=== PATIENT | female | born 1995 | race Caucasian/White ===

== ENCOUNTER 2016-10-05 18:27 | Emergency (ER) | payer OTHER ==
[~2016-10-05] VITALS: Ht 162.6 cm; Wt 72.7 kg
[2016-10-05 18:40] VITALS: BP 128/92; PULSE 72; RESP 16; O2SAT 99
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
[2016-10-05] MEDS ORDERED: Ondansetron 2 mg/mL 2 mL Inj IVPUSH ONE (19:15)
[2016-10-05 19:40] LABS: BASOPHILS % (AUTO) 0.3 % (0-3); EOSINOPHILS % (AUTO) 0.8 % (0-5); MONOCYTES % (AUTO) 5.9 % (4-12); Mean Corpuscular Hemoglobin 31.1 pg (27.0-35.0); Mean Corpuscular Volume 89.5 fL (81-100); NEUTROPHILS % (AUTO) 63.3 % (40-74); Platelet Count 273 bil/L (150-400)
[2016-10-05 19:53] LABS: INR 1.03 ratio
--- NOTE | 2016-10-05 19:53 | DRSVH ---
PROCEDURE: CT BRAIN WITHOUT CONTRAST ([id number]) INDICATIONS: trauma TECHNIQUE: Noncontrast 4.5 mm thick angled axial sections acquired from the foramen magnum to the vertex, with c oronal reformats. COMPARISON: None. FINDINGS: Image quality: Excellent. CSF spaces: Basal cisterns are patent. No extra-axial fluid collections. Ventricles are normal in size and shape. Brain: No midline shift. No intracranial masses or hemorrhage. Sigala-white matter interface is norm al. Skull and face: Calvarium and visualized facial bones are intact, without suspicious lesions. Sinuses: Visualized sinuses and mastoids are clear. IMPRESSION: No acute intracranial process Dictated by: Aram Jackson M.D. on 10/05/2016 at 19:48 Approved by: Aram Jackson M.D. on 10/05/2016 at 19:51
--- NOTE | 2016-10-05 19:55 | DRSVH ---
PROCEDURE: CT CERVICAL SPINE WITHOUT CONTRAST ([id number]) INDICATIONS: trauma TECHNIQUE: Noncontrast 3 mm thick sections acquired from the skull base to the T4 level. Sagittal and coronal r eformats were then constructed. For radiation dose reduction, the following was used: automated exp osure control, adjustment of mA and/or kV according to patient size. COMPARISON: None. FINDINGS: Image quality: Excellent. Bones: No fractures or dislocations. Visualized superior ribs are intact. Straightening of the nor mal cervical lordosis. The disc spaces appear preserved Soft tissues: Prevertebral soft tissues are normal in thickness. No paravertebral hematomas. No ap ical pneumothoraces. IMPRESSION: No fracture Dictated by: Aram Jackson M.D. on 10/05/2016 at 19:51 Approved by: Aram Jackson M.D. on 10/05/2016 at 19:53
[2016-10-05 20:22] VITALS: BP 120/74; PULSE 70; RESP 16; O2SAT 99
[2016-10-05] MEDS ORDERED: ONDA4TAB9 PO (20:22)
[2016-10-05 20:29] VITALS: BP 120/74; PULSE 70; RESP 16; O2SAT 99
== END 2016-10-05 20:29 | disposition home or self-care (01) ==
LOC: SED 18:27
DX: S06.0X0A Concussion without loss of consciousness, initial encounter (principal); V94 Other and unspecified water transport accidents; Y93.16 Activity, rowing, canoeing, kayaking, rafting and tubing; Y92.89 Other specified places as the place of occurrence of the external cause; Y99.8 Other external cause status; M54.2 Cervicalgia
CPT/HCPCS: 36415; 70450; 72125; 80053; 81025; 84703; 85025; 85610; 96374; 99285; G0480; J2405